=== PATIENT | male | born 1970 | race Caucasian/White ===

== ENCOUNTER 2021-04-26 11:25 | Emergency (ER) | payer OTHER ==
[2021-04-26 11:53] VITALS: PULSE 88; TEMP 98.3; BMI 34.2
[2021-04-26] MEDS ORDERED: CASIRIVIMAB/IMDEVIMAB 10 ML in SODIUM CHLORIDE 100 ML IVPB ONE (13:18)
[2021-04-26 13:45] LABS: HEMATOCRIT 45.7 % (35.4-49); HEMOGLOBIN 15.5 GM/dL (11.7-16.9); MCH 31.3 pg (25.7-33.7); MCHC 33.9 g/dl (32.0-35.9); MEAN CELL VOLUME 92.5 fl (80-96); MEAN PLT VOLUME 8.3 fl (7.5-11.1); PLATELET COUNT 231 10^3/uL (134-434); RBC 4.94 M/mm3 (4.00-5.60); RDW 12.9 % (11.9-15.9); WHITE BLOOD COUNT 6.7 K/mm3 (4.0-10.0)
[2021-04-26 14:15] LABS: ALBUMIN 3.8 g/dl (3.4-5.0); BLOOD UREA NITROGEN 13.8 mg/dL (7-18); CALCIUM 9.4 mg/dL (8.5-10.1)
[2021-04-26 14:18] LABS: CREATININE 0.9 mg/dL (0.55-1.3)
[2021-04-26 14:20] LABS: TOT PROT 7.8 g/dl (6.4-8.2)
[2021-04-26 15:35] VITALS: BP 114/72
== END 2021-04-26 15:45 | disposition home or self-care (01) ==
LOC: JCOVINFU 11:25 → JER 11:25 → JCOVINFU 15:45
PROC: 3E033GC Introduction of Other Therapeutic Substance into Peripheral Vein, Percutaneous Approach (ICD-10-PCS; principal; 2021-04-26)
DX: U07.1 COVID-19 (principal)
CPT/HCPCS: 36415; 80053; 85027; 99284-25; Q0240

== ENCOUNTER 2022-03-02 12:04 | Emergency (ER) | payer OTHER ==
[2022-03-02 12:30] VITALS: BP 118/83; PULSE 72; RESP 18; TEMP 98.3; BMI 34.2
[2022-03-02 16:02] LABS: BASO % 0.6 % (0-2.0); EOS % 3.1 % (0-4.5); HEMATOCRIT 46.3 % (35.4-49); HEMOGLOBIN 15.3 GM/dL (11.7-16.9); LYMPH % 37.6 % (8-40); MCH 30.3 pg (25.7-33.7); MEAN CELL VOLUME 91.9 fl (80-96); MEAN PLT VOLUME 9.7 fl (7.5-11.1); MONO % 5.4 % (3.8-10.2); NEUT % 53.3 % (42.8-82.8); PLATELET COUNT 266 10^3/uL (134-434); RBC 5.04 M/mm3 (4.00-5.60); RDW 12.5 % (11.9-15.9); URINE APPEARANCE CLEAR; URINE BILIRUBIN NEGATIVE (NEGATIVE); URINE COLOR YELLOW; URINE GLUCOSE (UA) NEGATIVE (NEGATIVE); URINE KETONE NEGATIVE (NEGATIVE); URINE LEUK ESTERASE NEGATIVE (NEGATIVE); URINE NITRITE NEGATIVE (NEGATIVE); URINE PROTEIN NEGATIVE (NEGATIVE); URINE UROBILINOGEN 0.2 mg/dL (0.2-1.0); WHITE BLOOD COUNT 6.8 K/mm3 (4.0-10.0)
[2022-03-02 16:07] LABS: INR 0.94 (0.83-1.09); PROTHROMBIN TIME (PATIENT) 10.8 SEC (9.7-13.0)
[2022-03-02 16:19] LABS: ALBUMIN 3.9 g/dl (3.4-5.0); CALCIUM 9.9 mg/dL (8.5-10.1)
[2022-03-02 16:20] LABS: BLOOD UREA NITROGEN 11.2 mg/dL (7-18)
[2022-03-02 16:22] LABS: CREATININE 0.8 mg/dL (0.55-1.3)
[2022-03-02 16:24] LABS: BILIRUBIN,TOTAL 0.6 mg/dL (0.2-1); TOT PROT 7.2 g/dl (6.4-8.2)
== END 2022-03-02 17:24 | disposition home or self-care (01) ==
LOC: JER 12:04
DX: R10.11 Right upper quadrant pain (principal)
CPT/HCPCS: 36415; 76705-TC; 80053; 81003; 83690; 85025; 85610; 87086; 99284-25

== ENCOUNTER 2024-03-08 07:20 | Emergency (ER) | payer OTHER ==
[2024-03-08 07:32] VITALS: BP 111/79; PULSE 62; RESP 18; TEMP 98.2; BMI 32.1
[2024-03-08 08:46] LABS: BASO % 0.4 % (0-2.0); EOS % 2.4 % (0-4.5); HEMATOCRIT 42.2 % (35.4-49); HEMOGLOBIN 14.3 GM/dL (11.7-16.9); LYMPH % 26.9 % (8-40); MCH 30.6 pg (25.7-33.7); MEAN PLT VOLUME 8.4 fl (7.5-11.1); MONO % 5.7 % (3.8-10.2); NEUT % 64.6 % (42.8-82.8); PH,URINE 8.5 (5.0-8.0); PLATELET COUNT 253 10^3/uL (134-434); RBC 4.69 M/mm3 (4.00-5.60); RDW 12.8 % (11.9-15.9); URINE APPEARANCE CLEAR; URINE BILIRUBIN NEGATIVE (NEGATIVE); URINE COLOR YELLOW; URINE GLUCOSE (UA) NEGATIVE (NEGATIVE); URINE KETONE NEGATIVE (NEGATIVE); URINE LEUK ESTERASE NEGATIVE (NEGATIVE); URINE NITRITE NEGATIVE (NEGATIVE); URINE PROTEIN NEGATIVE (NEGATIVE); WHITE BLOOD COUNT 5.7 K/mm3 (4.0-10.0)
[2024-03-08 08:52] LABS: INR 1.04 (0.83-1.09); PROTHROMBIN TIME (PATIENT) 11.9 SEC (9.7-13.0)
[2024-03-08 08:55] LABS: ACTIVATED PTT 34.5 SECONDS (25.2-36.5)
[2024-03-08] MEDS ORDERED: ACETAMINOPHEN INJECTION 100 ML ONE (09:00)
[2024-03-08] MEDS ORDERED: MAG HYDROX/AL HYDROX/SIMETH 30 ML UNIT-DOSE CUP ONE (09:01)
[2024-03-08] MEDS ORDERED: FAMOTIDINE 20 MG/50 ML IVPB 20 MG/50 ML MG IVPB ONE (09:01)
[2024-03-08 09:05] LABS: POTASSIUM 4.1 mmol/L (3.5-5.1)
[2024-03-08 09:07] LABS: CALCIUM 9.9 mg/dL (8.5-10.1)
[2024-03-08 09:08] LABS: BLOOD UREA NITROGEN 9.5 mg/dL (7-18); MAGNESIUM 1.9 mg/dL (1.8-2.4)
[2024-03-08 09:11] LABS: CREATININE 0.9 mg/dL (0.55-1.3)
[2024-03-08 09:12] LABS: BILIRUBIN,TOTAL 1.1 mg/dL (0.2-1); TOT PROT 6.9 g/dl (6.4-8.2)
[2024-03-08] MEDS: MAG HYDROX/AL HYDROX/SIMETH 30 ML UNIT-DOSE CUP PO ONE (09:14)
[2024-03-08] MEDS: FAMOTIDINE 20 MG/50 ML IVPB 20 MG/50 ML MG IVPB ONE (09:14)
[2024-03-08] MEDS: ACETAMINOPHEN 1000 MG/100 ML BAG IVPB ONE (09:14)
== END 2024-03-08 11:53 | disposition home or self-care (01) ==
LOC: JER 07:20
PROC: 3E033GC Introduction of Other Therapeutic Substance into Peripheral Vein, Percutaneous Approach (ICD-10-PCS; principal; 2024-03-08)
PROC: 3E033GC Introduction of Other Therapeutic Substance into Peripheral Vein, Percutaneous Approach (ICD-10-PCS; 2024-03-08)
PROC: 3E033NZ Introduction of Analgesics, Hypnotics, Sedatives into Peripheral Vein, Percutaneous Approach (ICD-10-PCS; 2024-03-08)
DX: R10.13 Epigastric pain (principal); L29.9 Pruritus, unspecified; R21 Rash and other nonspecific skin eruption
CPT/HCPCS: 36415; 76705-TC; 80053; 81003; 83690; 83735; 85025; 85610; 85730; 86780; 87086; 93005; 93010; 96365; 96375; 99285-25; J0131